=== PATIENT | female | born 1995 | race Caucasian/White ===

== ENCOUNTER 2017-03-31 00:01 | Emergency (ER) | payer BC ==
[~2017-03-31] VITALS: Ht 165.1 cm; Wt 73.9 kg
[~2017-03-31 00:01] MED LIST: AUGMENTIN ES-6150 ML PO; BACTRIM DS 8001 TAB PO; FERROUS SULFAT325 M2 PO; IBUPROFEN800 MG PO; KEFLEX500 M1 PO; OMNICEF 12125 MG/5ML PO; PRENATAL PLUS1 TA1 PO
[2017-03-31] MEDS ORDERED: TAMIFLU 75MG CA75 MG PO (00:18)
[2017-03-31 00:30] LABS: URINE BILIRUBIN - DIPSTICK NEGATIVE (NEG); URINE BLOOD NEGATIVE (NEG)
[2017-03-31 00:41] LABS: LYMPH # 0.8 K/mm3 (0.7-4.5); LYMPH % 6.4 % (10-50.0)
[2017-03-31 00:44] LABS: HEMOGLOBIN 13.4 g/dL (12.2-16.2)
--- NOTE | 2017-03-31 00:49 | Emergency Room Report ---
History of Present Illness Time Seen by 004[place] Presenting Problem in Triage Pt arrived:Walked Presenting Problem:C/O BURNING WITH URINATION X 1 MONTH. BLOOD IN URINE X 2 WEEKS. C/O BACK PAIN AND ABD PAIN, Onset of symptoms date/time:03/01/17/ or onset unknown for:MEDICAL HX UNKNOWN Treatment Prior to Arrival: [employer] Provided by:SELF Sepsis Risk Assessment: Temp: 99.9 B/P: 128/65 MAP: 86 Pulse: 120 Resp: 18 Recent fever? N Clinical Suspician of Infection? N Mental Status: 1 - Regular (Normal Baseline) Sepsis Risk:Low Sepsis Risk Have you (or family members/close friends) recently traveled outside the [place]? N If Yes, where/when: Have you had exposure to infectious disease within the past month? N TB? Other? Specify: Source patient, RN notes reviewed, old records Exam Limitations no limitations Comment pt with back pain with urinary sx over the last few days Cardiac Chest Pain Chest pain indicative of cardiac No Timing/Duration this evening Severity moderate ALLERGIES Coded Allergies: No Known Allergies (03/31/17) Home Medications Reported Medications Oseltamivir Phosphate (Tamiflu 75MG Capsule) 75 MG PO DAILY History Medical History General CAD? No Angina: No NV: No Hypertension? Yes Hyperlipidemia? No CHF? No DVT? No PE? No COPD? No Asthma? Yes Anemia? No GERD? No Gastric ulcers? No GI Bleed? No Hernia? No Thyroid Problems? No Hypothyroidism? No CVA? No Seizures? No Diabetes? No Renal Insuffiency? No End Stage Renal Disease? No UTI? Yes Stones? No BPH? No GB Disease: Yes Nephritic Syndrome? No Asplenia? No Hepatitis? No Sickle Cell Disease? No Arthritis? No Cataracts? No Glaucoma? No MRSA? Yes TB? No Cancer? 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 Respiratory denies cough, denies shortness of breath, denies wheezing Cardiovascular denies chest pain, denies syncope Gastrointestinal denies abdominal pain, denies vomiting Genitourinary see HPI, frequency. denies: discharge, abnormal vaginal bleeding, dysuria, hesitancy, hematuria. Musculoskeletal see HPI, back pain, denies joint pain, denies joint swelling, denies neck pain Skin denies rash Psychiatric/Neurological denies headache, denies seizure Physical Exam Vital Signs Vital Signs Date Time Temp Pulse Resp B/P Pulse O2 O2 Flow FiO2 Ox Delivery Rate 03/31 0256 101.8 108 18 98/46 100 03/31 0218 108 18 117/57 100 03/31 0135 100.0 115 18 94/64 100 03/31 0013 99.9 120 18 128/65 100 - WBC >12,000 or <4,000 or 10% bands? 2 or more SIRS Criteria Met? B/P: MAP:86 Creatinine >2.0? UA output<0.5ml/kg/hr for 2 hrs? Platelet count >100,000? Lactate >2.0mmol/1? INR >1.2 or PTT > than 60 sec? Evidence of Organ Dysfunction? Provider documented clinical suspician of infection? N Sepsis Criteria Count: 1 Sepsis Risk: Low Sepsis Risk General Appearance no apparent distress Eye Exam - bilateral eye PERRL, bilateral eye EOMI Ear, Nose, Throat normal ENT inspection Neck supple Respiratory Status No: respiratory distress. Lung Sounds bilateral: lungs clear. Cardiovascular regular rate/rhythm, no murmur Peripheral Pulses Pulses normal Yes Gastrointestinal soft, no organomegaly, no pulsatile mass, no guarding, no rebound Back no vertebral tenderness, CVA tenderness (R) Extremities normal inspection Strength 4 Upper Ext (L), 4 Upper Ext (R), 4 Lower Ext (L), 4 Lower Ext (R) Neurologic alert, candlemaker II-XII nml as tested, no motor/sensory deficits Reflexes Reflexes normal Yes Mental status normal mood/affect Skin no rash cons.w/shingles Medical Decision Making LABS/Meds/Orders Pt receiving controlled substance in ED? No Results/Orders Laboratory Tests 03/31/17 0020: Sodium 138, Potassium 3.0 L, Chloride 103, Carbon Dioxide 26, BUN 15, Creatinine 0.8, Estimated Creat Clear 130, Estimated GFR (MDRD) 91, Glucose 94, Calcium 9.0, Total Bilirubin 0.8, AST 43 H, ALT 57, Alkaline Phosphatase 60, Total Protein 8.1, Albumin 4.3, Globulin 3.8 H, Albumin/Globulin Ratio 1.1, WBC 11.7 H, RBC 4.73, Hgb 13.4, Hct 40.3, MCV 85.2, RDW 13.0, Plt Count 194, MPV 6.2 L, Gran % 89.1 H, Gran # 10.4 H, Total Counted 100, Lymphocytes % 6.4 L, Monocytes % 3.9, Eosinophils % 0.4, Basophils % 0.2, Neutrophils 89 H, Lymphocytes (Manual) 8 L, Lymphocytes # 0.8, Monocytes (Manual) 2, Monocytes # 0.5, Eosinophils # 0.1, Eosinophils # (Manual) 1, Basophils # 0.0, Platelet Estimate NORMAL, Hypochromasia 1+, Anisocytosis 1+, PUBS MCHC 32.9, MCH 28.1 03/31/17 0013: Lactic Acid Cancelled, Urine Color YELLOW, Urine Appearance CLEAR, Urine pH 6.0, Ur Specific [place] 1.025, Urine Protein TRACE H, Urine Ketones NEGATIVE, Urine Blood NEGATIVE, Urine Nitrate NEGATIVE, Urine Bilirubin NEGATIVE, Urine Urobilinogen 1.0, Ur Leukocyte Esterase 1+ H, Urine RBC OCC, Urine WBC 10-20, Ur Squamous Epith Cells 5-10, Urine Bacteria 1+, Urine Glucose NEGATIVE Current Medication Orders Sig/Daisy Start time Last Medication Dose Route Stop Time Status Admin Ketorolac 30 MG ONCE ONE 03/31 315 AC Tromethamine IV 03/31 031 Levofloxacin 500 MG ONCE ONE 03/31 031 AC PO 03/31 0316 Ibuprofen 600 MG ONCE ONE 03/31 0300 DC 03/31 PO 03/31 0301 0258 Ibuprofen 0 .STK-MED ONE 03/31 025 DC PO Ceftriaxone Sodium 1 GM ONCE ONE 03/31 0200 DC 03/31 Sodium Chloride 50 ML IV 03/31 0229 0155 Sodium Chloride 50 ML .STK-MED ONE 03/31 156 DC IV Ceftriaxone Sodium 0 .STK-MED ONE 03/31 155 DC IV Acetaminophen 650 MG ONCE ONE 03/31 0145 DC 03/31 PO 03/31 0146 0138 Sodium Chloride 1,000 ML .Q1H1M 03/31 145 DC 03/31 IV 03/31 0245 0140 Sodium Chloride 10 ML PRN PRN 03/31 0145 AC IV 04/01 0136 Acetaminophen 0 .STK-MED ONE 03/31 0140 DC PO Sodium Chloride 1,000 ML .STK-MED ONE 03/31 0139 DC IV Sodium Chloride 10 ML PRN PRN 03/31 0015 AC IV 04/01 0012 Orders Procedure Date/time Status DIET-NOTHING BY MOUTH 03/[address] ABD & PELVIS W/O CONTRAST 03/[address] ABD/PELVIS REQ 03/31 015 Complete DIFFERENTIAL-WBC 03/31 0020 Complete IV SALINE LOCK 03/31 0013 Active CULTURE, URINE 03/31 0013 Active URINALYSIS/COMPLETE 03/31 0013 Complete URINE 03/31 0013 Complete COMPLETE METABOLIC PANEL 03/31 0013 Complete CBC WITH AUTO DIFF 03/31 0013 Complete XRAY/CT/US XRAY/CT/US CT abdomen, pelvis CT interpretation by discussed w/radiologist Time results known: 301 CT Results normal/NAD Departure Departure Time of Disposition 030 Disposition DC Home or Self Care(routine) Clinical Impression Primary Impression: UTI (urinary tract infection) Qualifiers: Urinary tract infection type: acute pyelonephritis Qualified Code: N10 - Acute pyelonephritis Condition STABLE Referrals Pierre Allen MD (Family) Patient Instructions DI for Fever (Symptom) -- Adult Additional Instructions fluids and call pcp for follow up and culture results Discharge Counseling Counseled pt/family regarding diagnosis, test results, medications/RX, follow up needs Prescriptions Current Visit Scripts Ciprofloxacin HCl (Cipro 500MG TAB) 500 MG PO BID #14 TAB ED Critical Care Critical Care No at 0307
[2017-03-31 02:22] LABS: NEUTROPHILS 89 % (42-76)
[2017-03-31] MEDS ORDERED: CIPRO 500MG TA500 MG PO (03:07)
[2017-03-31 03:13] VITALS: BP 98/46
--- NOTE | 2017-03-31 10:59 | RADIOLOGY REPORT PS360 ---
CT ABD PELVIS W/O CONTRAST CLINICAL INDICATION: Flank pain, abdominal pain C/O BACK PAIN, BURNING WITH URINATION ORDERING PHYSICIAN: Nancy Ramos MD PATIENT AGE: 22 years COMPARISON: 03/20/2010 TECHNIQUE: Axial images obtained with sagittal and coronal reformats. PROCEDURE: Oral Contrast: None IV Contrast: None . FINDINGS: Lower thorax: No acute finding ABDOMEN: Liver: No masses or biliary dilatation. Gallbladder: Prior cholecystectomy. No ductal dilatation Pancreas: No masses or peripancreatic fluid collections. Spleen: Unremarkable. Adrenals: Unremarkable Kidneys/ureters: No masses. No renal calculi. No hydronephrosis. No perinephric fluid collections. No ureteral dilatation or obvious ureteral calculi. Stomach bowel: Mild constipation. No obstruction or free air fluid-filled loops of small bowel are present which are nonspecific. There is mild thickening versus nondistention of the rectum. Appendix: No evidence of appendicitis. PELVIS: Reproductive: Unremarkable Bladder: Nondistended. No obvious stones or masses. ABDOMEN & PELVIS: Peritoneum: No abnormal fluid collections. No obvious inflammatory changes. No free air. Lymph nodes: No enlarged lymph nodes apparent. Vasculature: No evidence of abdominal aortic aneurysm. No retroperitoneal hemorrhage evident. Bones: There is sclerosis of the SI joints on both sides IMPRESSION: 1. Mild thickening versus nondistention of the rectum. Proctitis not excluded. 2. Mild sclerosis of the SI joints nonspecific.
== END 2017-03-31 03:16 | disposition home or self-care (01) ==
LOC: ER 00:01
PROVIDERS: Emergency Medicine
DX: N10 Acute pyelonephritis (principal)

== ENCOUNTER → 2017-05-18 | Outpatient (CLI) | payer BC ==
[~2017-05-18] MED LIST changes: +CIPRO 500MG TA500 MG PO; +TAMIFLU 75MG CA75 MG PO
--- NOTE | 2017-05-19 11:33 | RADIOLOGY REPORT PS360 ---
US TRANSVAGINAL PREG COMPARISON: Ultrasound of 05/21/2015 HISTORY: Evaluation for viability suspected early TECHNIQUE: Transvaginal imaging FINDINGS: There is a gestational sac seen within the uterus. Yolk sac identified measuring 0.3 cm. echoes are noted with a crown-rump length of 0.45 cm equaling 6 [id number]. The heart rate is measured at 1 15 bpm on one image and 124 bpm the second image. Both ovaries are imaged and both appear normal. There is no cul-de-sac fluid. The uterus is somewhat retroverted. IMPRESSION: Early viable intrauterine gestation estimated age of 6 weeks and 2 days
--- NOTE | 2017-05-19 11:33 | RADIOLOGY REPORT PS360 ---
US TRANSVAGINAL PREG COMPARISON: Ultrasound of 05/21/2015 HISTORY: Evaluation for viability suspected early TECHNIQUE: Transvaginal imaging FINDINGS: There is a gestational sac seen within the uterus. Yolk sac identified measuring 0.3 cm. echoes are noted with a crown-rump length of 0.45 cm equaling 6 [id number]. The heart rate is measured at 1 15 bpm on one image and 124 bpm the second image. Both ovaries are imaged and both appear normal. There is no cul-de-sac fluid. The uterus is somewhat retroverted. IMPRESSION: Early viable intrauterine gestation estimated age of 6 weeks and 2 days
== END ==
LOC: RAD 10:11
DX: O26.841 Uterine size-date discrepancy, first trimester (principal)

== ENCOUNTER → 2017-08-26 | Outpatient (CLI) | payer BC ==
--- NOTE | 2017-08-26 17:39 | RADIOLOGY REPORT PS360 ---
US PREG COMP: INDICATION: ANATOMY OB US ORDERING PHYSICIAN: Sivakumar Lynn MD PATIENT AGE: 22 years TECHNIQUE: ultrasound transabdominal scanning. COMPARISON: No previous relevant studies. FINDINGS: Single viable intrauterine gestation. Breech position. Placenta: Fundal placenta grade 1. There is average amount fluid. The cervix appears satisfactory. Closed and measuring 4 cm in length. Complete survey performed and was unremarkable on the submitted images as in PACS. No discrete anomalies identified on survey imaging by technologist. Active fetus. Three-vessel cord with satisfactory umbilical cord insertion. 4- chamber heart noted. Survey of brain & ventricles. Face and neck survey unremarkable. Diaphragm and chest views unremarkable. Abdomen: Both kidneys noted and unremarkable. Stomach noted and satisfactory. Spine: Survey of the spine satisfactory with no anomalies identified nor imaged. Both arms and legs noted. Amniotic Fluid: Adequate. Maternal adnexa: No significant findings. Measurements: Average ultrasound age 21 weeks 0 days. Gestational Age 20 weeks 4 days. Estimated due date by ultrasound age 301/06/2018. Estimated weight 400 g grams.. This is 75th percentile according to last menstrual period BPD = 20 weeks 2 days OFD = 22 weeks 1 day HC = 20 weeks 5 days AC = 21 weeks 1 day FL = 21 weeks 3 days Heart Rate = 153 Cerebellum = 20 weeks 4 days Humerus = 21 weeks 5 days HC/AC is 1.14. CI is 70%. FL/BPD is 76%. FL/AC is 22%. IMPRESSION: There is a single live fetus with average ultrasound age of 21 weeks 0 days in the breech presentation. No obvious anomalies are apparent. The placenta is fundal and there is average amniotic fluid. Please see above for details.
== END ==
LOC: RAD 09:37
DX: Z36.89 Encounter for other specified antenatal screening (principal)

== ENCOUNTER 2017-09-29 00:52 | Outpatient (CLI) | payer BC ==
[~2017-09-29] VITALS: Ht 167.6 cm; Wt 83.0 kg
[2017-09-29 01:00] VITALS: BP 116/72
[2017-09-29] MEDS ORDERED: PRENATAL PLUS1 TA1 PO (01:19)
[2017-09-29 01:20] LABS: URINE BILIRUBIN - DIPSTICK NEGATIVE (NEG); URINE BLOOD 3+ (NEG)
[2017-09-29 02:23] LABS: LYMPH # 2.7 K/mm3 (0.7-4.5); LYMPH % 21.9 % (10-50.0)
[2017-09-29 02:26] LABS: HEMOGLOBIN 10.2 g/dL (12.2-16.2)
== END 2017-09-29 03:00 | disposition home or self-care (01) ==
LOC: OBOUT 00:52 → OB 00:52 → OBOUT 03:00
PROVIDERS: Obstetrics & Gynecology
DX: O26.92 Pregnancy related conditions, unspecified, second trimester (principal); Z3A.25 25 weeks gestation of pregnancy; M54.5 Low back pain; N93.9 Abnormal uterine and vaginal bleeding, unspecified